=== PATIENT | female | born 1960 | race Caucasian/White ===

== ENCOUNTER 2022-10-12 08:44 | Day surgery (SDC) | payer MEDICARE ==
[~2022-10-12 08:44] MED LIST: Cefuroxime 10 MG/ML SYRINGE EYELF SCH; Lidocaine 1% PF 2 ML SDV INJECT SCH; Pilocarpine 4% Ophth Soln 15 ML Bot EYELF SCH
[2022-10-12] MEDS: Polymyxin B/Trimethoprim 10 ML Bottle EYELF SCH ×3 (09:45→11:16)
[2022-10-12] MEDS ORDERED: Ondansetron 4 MG/2 ML SDV IVPUSH PRN (09:46)
[2022-10-12] MEDS: Brimonidine 0.2% Ophth Soln 5 ML Bottle EYELF SCH ×3 (09:51→11:16)
[2022-10-12] MEDS: Phenylephrine 2.5% Opth Drops 10 mL EYELF SCH ×5 (09:56→10:51)
[2022-10-12] MEDS: Tropicamide 1% Ophth Soln 15 ML Bottle EYELF SCH ×4 (10:01→10:35)
[2022-10-12] MEDS: Tetracaine HCl/PF 0.5% 4 ML Bottle EYEBOTH SCH ×4 (10:38→11:02)
[2022-10-12 11:35] VITALS: BP 133/94; PULSE 74
== END 2022-10-12 11:28 | disposition home or self-care (01) ==
LOC: JD.SDS 08:44
PROVIDERS: ATTEND Ophthalmology
DX: H25.813 Combined forms of age-related cataract, bilateral (principal); E78.00 Pure hypercholesterolemia, unspecified; F32.A Depression, unspecified; M19.90 Unspecified osteoarthritis, unspecified site; R53.83 Other fatigue; Z79.899 Other long term (current) drug therapy; Z88.0 Allergy status to penicillin; Z88.1 Allergy status to other antibiotic agents
CPT/HCPCS: 66984; A9270; J0697; J3490

== ENCOUNTER 2024-03-11 07:00 | Day surgery (SDC) | payer MEDICARE ==
[~2024-03-11 07:00] MED LIST changes: -Cefuroxime 10 MG/ML SYRINGE EYELF SCH; -Lidocaine 1% PF 2 ML SDV INJECT SCH; -Pilocarpine 4% Ophth Soln 15 ML Bot EYELF SCH; +Sodium Chloride 0.9% 10 ML Syringe FLUSH PRN; +Sodium Chloride 0.9% 10 ML Syringe FLUSH SCH
[2024-03-11] MEDS ORDERED: Midazolam 1 MG/ML 2 ML SDV ONE (07:07)
[2024-03-11] MEDS ORDERED: fentaNYL 250 MCG/5 ML SDV ONE (07:07)
[2024-03-11] MEDS ORDERED: Dexamethasone 4 MG/ML 5 ML MDV ONE ×2 (07:07→09:03)
[2024-03-11] MEDS ORDERED: Rocuronium 50 MG/5 ML Vial ONE (07:07)
[2024-03-11] MEDS ORDERED: Ondansetron 4 MG/2 ML SDV ONE (07:07)
[2024-03-11] MEDS ORDERED: Propofol 200 MG/20 ML SDV ONE (07:07)
[2024-03-11] MEDS ORDERED: ceFAZolin 2 GM Vial ONE (07:07)
[2024-03-11] MEDS ORDERED: Lidocaine 1% 5 ML VIAL ONE (07:07)
[2024-03-11] MEDS: Lactated Ringers 1,000 ML IV SCH (07:10)
[2024-03-11 07:13] LABS: APPEARANCE,URINE SLT CLOUDY (Clear); BILIRUBIN,URINE NEGATIVE (Negative); COLOR,URINE YELLOW (Yellow); GLUCOSE,URINE NEGATIVE (Negative); KETONES,URINE NEGATIVE (Negative); LEUKOCYTE ESTERASE,URINE TRACE (Negative); NITRITE,URINE NEGATIVE (Negative); OCCULT BLOOD,URINE TRACE-INTACT (Negative); PROTEIN,URINE NEGATIVE (Negative); UROBILINOGEN,URINE 0.2 (0.2-1.0)
[2024-03-11 07:21] LABS: BACTERIA,URINE FEW /hpf (FEW); MUCUS,URINE FEW /hpf (FEW)
[2024-03-11] MEDS ORDERED: fentaNYL 100 MCG/2 ML SDV IVPUSH PRN (07:49)
[2024-03-11] MEDS ORDERED: HYDROmorphone 0.5 MG/0.5 ML Syringe IVPUSH PRN (07:49)
[2024-03-11] MEDS ORDERED: Ketamine 200 MG/20 ML MDV ONE (08:14)
[2024-03-11] MEDS ORDERED: ePHEDrine 50 MG/ML SDV ONE (08:25)
[2024-03-11] MEDS: Bupivacaine 0.25% 10 ML SDV ONE (08:27)
[2024-03-11] MEDS: Bupivacaine 0.5% 30 ML SDV ONE (08:27)
[2024-03-11] MEDS: EPINEPHrine 1 MG/ML SDV ONE (08:27)
[2024-03-11] MEDS ORDERED: Lactated Ringers 1,000 ML ONE (08:34)
[2024-03-11] MEDS ORDERED: HYDROmorphone 0.5 MG/0.5 ML Syringe ONE ×2 (08:42→09:04)
[2024-03-11] MEDS ORDERED: fentaNYL 100 MCG/2 ML SDV ONE (08:51)
[2024-03-11] MEDS ORDERED: Neostigmine Methylsulfate 10 MG/10 ML MDV ONE (09:33)
[2024-03-11] MEDS ORDERED: Ketorolac 30 MG/ML SDV ONE (09:37)
[2024-03-11] MEDS: Ondansetron 4 MG/2 ML SDV IVPUSH PRN (10:31)
[2024-03-11] MEDS: droPERidol 5 MG/2 ML SDV IVPUSH PRN (10:47)
[2024-03-11] MEDS ORDERED: Acetaminophen/oxyCODONE 325-5 MG Tab PO PRN (11:44)
[2024-03-11 14:05] VITALS: BP 131/75; PULSE 93
== END 2024-03-11 13:55 | disposition home or self-care (01) ==
LOC: JD.SDS 07:00
PROVIDERS: ATTEND Obstetrics & Gynecology
DX: N84.0 Polyp of corpus uteri (principal); N80.03 Adenomyosis of the uterus; N83.202 Unspecified ovarian cyst, left side; N72 Inflammatory disease of cervix uteri; F41.9 Anxiety disorder, unspecified; F32.A Depression, unspecified; E78.5 Hyperlipidemia, unspecified; Z87.891 Personal history of nicotine dependence; Z79.899 Other long term (current) drug therapy
CPT/HCPCS: 36415; 58552; 81001; 81025; 86850; 86900; 86901; 88307; J0171; J0665; J0690; J1100; J1171; J1790; J1885; J2250; J2405; J2704; J2710; J3010; J3490; J7120; 00944